=== PATIENT | female | born 1950 | race Hispanic/Latino ===

== ENCOUNTER 2017-09-21 15:14 | Emergency (ER) | payer MEDICARE, BC ==
[2017-09-21] MEDS ORDERED: Dexamethasone 4 mg/ml Vial ONE (16:35)
--- NOTE | 2017-09-21 17:12 | RAD ---
2 VIEW CHEST: Date: 09/21/17 HISTORY: Cough. COMPARISON: 06/13/06. FINDINGS: Lungs are clear. No infiltrate. Heart and mediastinum unremarkable with mild calcification in the aor ta noted. Osseous structures unremarkable. IMPRESSION: No acute abnormality. POS: [facility]
== END 2017-09-21 17:00 | disposition home or self-care (01) ==
LOC: ERS 15:14
DX: J06.9 Acute upper respiratory infection, unspecified (principal); F17.210 Nicotine dependence, cigarettes, uncomplicated
CPT/HCPCS: 71046; J1100

== ENCOUNTER 2018-05-11 13:48 | Outpatient (CLI) | payer MEDICARE | END 2018-05-11 13:49 | disposition home or self-care (01) | LOC: BICMAMMO 13:48 | PROVIDERS: ATTEND Internal Medicine | DX: Z12.31 Encounter for screening mammogram for malignant neoplasm of breast (principal) | CPT/HCPCS: 77063; 77067 ==

== ENCOUNTER 2021-04-16 14:51 | Outpatient (CLI) | payer MEDICARE | END 2021-04-16 14:52 | disposition home or self-care (01) | LOC: BICMAMMO 14:51 | PROVIDERS: ATTEND Nurse Practitioner Family | DX: Z12.31 Encounter for screening mammogram for malignant neoplasm of breast (principal) | CPT/HCPCS: 77063; 77067 ==